=== PATIENT | male | born 1990 | race Caucasian/White ===

== ENCOUNTER 2025-01-08 13:37 | Emergency (ER) | payer OTHER, MEDICAID ==
[~2025-01-08] VITALS: Ht 180.3 cm; Wt 154.0 kg
[2025-01-08 13:40] VITALS: TEMP 37.1; O2SAT 95
[2025-01-08 15:20] LABS: BASOPHILS % 1.2 % (0.0-2.0); EOSINOPHILS % 8.8 % (0.0-5.0); HEMATOCRIT. 43.5 % (42.0-52.0); HEMOGLOBIN. 14.8 g/dL (14.0-18.0); LYMPHOCYTES % 35.3 % (20.0-50.0); MEAN PLATELET VOLUME 7.9 fl (7.4-10.4); MONOCYTES % 5.4 % (2.0-8.0); NEUTROPHILS % 49.3 % (40.0-76.0); PLATELET 185 x1000/uL (130-400); RED BLOOD CELL COUNT 5.28 mill/uL (4.7-6.1); RED CELL DISTRIBUTION WIDTH 14.6 % (11.6-14.6)
[2025-01-08 15:36] LABS: CREATININE 1.0 mg/dL (0.6-1.3)
[2025-01-08 15:37] LABS: TROPONIN I HIGH SENSITIVITY 4 ng/L (3.0-53); UREA NITROGEN BLOOD 11 mg/dL (9-23)
[2025-01-08 15:38] LABS: ASPARTATE AMINOTRANSFERASE 13 IU/L (<34)
[2025-01-08 15:39] LABS: BILIRUBIN DIRECT 0.1 mg/dL (<=3.0); BILIRUBIN TOTAL 0.5 mg/dL (0.1-1.0); PROTEIN TOTAL 6.8 g/dL (6.0-8.3)
[2025-01-08 16:48] VITALS: BP 125/72; PULSE 64; RESP 22; O2SAT 98
== END 2025-01-08 16:56 | disposition left against medical advice (07) ==
LOC: EDBD 13:37 → ER 13:37 → EDBEDREQ 16:40 → ER 16:56 → CMPBEDREQ 16:57
DX: R07.89 Other chest pain (principal); E66.01 Morbid (severe) obesity due to excess calories; I10 Essential (primary) hypertension; J45.909 Unspecified asthma, uncomplicated
CPT/HCPCS: 36415; 71045; 80048; 80076; 84484; 85025; 93005; 99285